=== PATIENT | female | born 1995 | race African-American/Black ===

== ENCOUNTER 2020-10-03 09:02 | Emergency (ER) | payer OTHER ==
[2020-10-03 09:11] VITALS: BP 118/71; PULSE 65; TEMP 98.9; BMI 23.9
== END 2020-10-03 09:40 | disposition home or self-care (01) ==
LOC: JER 09:02
DX: T24.232A Burn of second degree of left lower leg, initial encounter (principal)
CPT/HCPCS: 99283-25

== ENCOUNTER 2022-09-02 10:25 | Emergency (ER) | payer OTHER ==
[2022-09-02 10:32] VITALS: BMI 24.0
[2022-09-02 11:54] LABS: BASO % 0.7 % (0-2.0); EOS % 1.5 % (0-4.5); HEMATOCRIT 34.8 % (32.4-45.2); HEMOGLOBIN 11.6 GM/dL (10.7-15.3); LYMPH % 15.3 % (8-40); MCH 32.5 pg (25.7-33.7); MCHC 33.3 g/dl (32.0-36.0); MEAN CELL VOLUME 97.8 fl (80-96); MEAN PLT VOLUME 7.3 fl (7.5-11.1); MONO % 8.1 % (3.8-10.2); NEUT % 74.4 % (42.8-82.8); PLATELET COUNT 435 10^3/uL (134-434); RBC 3.55 M/mm3 (3.60-5.2); RDW 14.2 % (11.6-15.6); WHITE BLOOD COUNT 10.1 K/mm3 (4.0-10.0)
[2022-09-02 11:56] LABS: EPI CELLS >36 /uL (0-25.1); HYALINE CASTS 3 /uL (0-3.1); PH,URINE 7.5 (5.0-8.0); URINE APPEARANCE CLOUDY; URINE BACTERIA 294 /uL (0-1359); URINE BILIRUBIN NEGATIVE (NEGATIVE); URINE COLOR YELLOW; URINE GLUCOSE (UA) NEGATIVE (NEGATIVE); URINE KETONE TRACE (NEGATIVE); URINE LEUK ESTERASE NEGATIVE (NEGATIVE); URINE NITRITE NEGATIVE (NEGATIVE); URINE PROTEIN 1+ (NEGATIVE); URINE RBC 14 /uL (0-23.9); URINE UROBILINOGEN 0.2 mg/dL (0.2-1.0)
[2022-09-02 12:10] LABS: URINE WBC 57 /uL (0-25.8)
[2022-09-02 12:12] LABS: POTASSIUM 3.8 mmol/L (3.5-5.1)
[2022-09-02 12:14] LABS: CALCIUM 9.1 mg/dL (8.5-10.1)
[2022-09-02 12:15] LABS: BLOOD UREA NITROGEN 7.2 mg/dL (7-18); MAGNESIUM 1.8 mg/dL (1.8-2.4)
[2022-09-02 12:18] LABS: CREATININE 0.5 mg/dL (0.55-1.3)
[2022-09-02 12:19] LABS: BILIRUBIN,TOTAL 0.2 mg/dL (0.2-1)
[2022-09-02 12:20] LABS: TOT PROT 7.3 g/dl (6.4-8.2)
[2022-09-02 12:57] VITALS: BP 114/63; PULSE 97; RESP 18; TEMP 98.5
== END 2022-09-02 14:00 | disposition home or self-care (01) ==
LOC: JER 10:25
DX: O99.513 Diseases of the respiratory system complicating pregnancy, third trimester (principal); R06.02 Shortness of breath; O26.893 Other specified pregnancy related conditions, third trimester; R42 Dizziness and giddiness; Z3A.31 31 weeks gestation of pregnancy
CPT/HCPCS: 36415; 80053; 81003; 83735; 84439; 84443; 85025; 93005; 93010; 99284-25

== ENCOUNTER 2022-10-27 04:30 | Inpatient (IN) | payer OTHER ==
[2022-10-27] MEDS ORDERED: PROMETHAZINE HCL 25 MG/1 ML VIAL IVPB ONE (05:45)
[2022-10-27] MEDS ORDERED: BUTORPHANOL TARTRATE 1 MG/ML VIAL IVPB ONE (05:45)
[2022-10-27] MEDS: ELECTROLYTE-148 SOLN 1,000 ML IV SCH ×2 (06:00→09:00)
[2022-10-27 06:13] VITALS: BMI 26.9
[2022-10-27 06:47] LABS: BASO % 0.6 % (0-2.0); EOS % 0.6 % (0-4.5); HEMATOCRIT 38.7 % (32.4-45.2); HEMOGLOBIN 12.5 GM/dL (10.7-15.3); LYMPH % 19.9 % (8-40); MCH 32.6 pg (25.7-33.7); MCHC 32.3 g/dl (32.0-36.0); MEAN PLT VOLUME 8.4 fl (7.5-11.1); MONO % 9.9 % (3.8-10.2); PLATELET COUNT 436 10^3/uL (134-434); RBC 3.83 M/mm3 (3.60-5.2); RDW 14.8 % (11.6-15.6); WHITE BLOOD COUNT 11.2 K/mm3 (4.0-10.0)
[2022-10-27 07:39] LABS: INR 1.03 (0.83-1.09); PROTHROMBIN TIME (PATIENT) 11.9 SEC (9.7-13.0)
[2022-10-27 07:42] LABS: ACTIVATED PTT 30.1 SECONDS (25.2-36.5)
[2022-10-27] MEDS ORDERED: FENTANYL/BUPIVACAINE/NS/PF - PCEA - 50 ML DISP.SYRIN EP ONE ×3 (08:22→17:59)
[2022-10-27 08:26] LABS: POTASSIUM 4.1 mmol/L (3.5-5.1)
[2022-10-27 08:27] LABS: CALCIUM 9.4 mg/dL (8.5-10.1)
[2022-10-27 08:28] LABS: BLOOD UREA NITROGEN 5.6 mg/dL (7-18)
[2022-10-27 08:31] LABS: CREATININE 0.5 mg/dL (0.55-1.3)
[2022-10-27] MEDS ORDERED: NALOXONE HCL 0.4 MG/ML VIAL IVPUSH PRN (09:30)
[2022-10-27] MEDS ORDERED: FENTANYL/BUPIVACAINE/NS/PF - PCEA - 50 ML DISP.SYRIN EP SCH (09:30)
[2022-10-27] MEDS ORDERED: ELECTROLYTE-148 SOLN 1,000 ML IV SCH (10:45)
[2022-10-27 12:26] LABS: HIV INTERPRETATION NEGATIVE (NEGATIVE)
[2022-10-27] MEDS ORDERED: OXYTOCIN 30 UNITS in 0.9% NS 30 UNIT/500 ML INFUS.BAG IVPB SCH (12:45)
[2022-10-27] MEDS: FENTANYL/BUPIVACAINE/NS/PF - PCEA - 50 ML DISP.SYRIN EP SCH ×2 (13:30→18:00)
[2022-10-27] MEDS ORDERED: OXYTOCIN 30 UNITS in 0.9% NS 30 UNIT/500 ML INFUS.BAG IVPB ONE (13:47)
[2022-10-27] MEDS ORDERED: OXYTOCIN 20 UNITS in 0.9% NS 20 UNIT/1,000 ML INFUS.BAG IV ONE (19:28)
[2022-10-27] MEDS ORDERED: LIDOCAINE HCL 1% PRESERVATIVE FREE - 30ML VIAL ONE (22:30)
[2022-10-27] MEDS ORDERED: oxyCODONE HCL 5 MG TABLET PO PRN (22:56)
[2022-10-27] MEDS ORDERED: BENZOCAINE 28 GM HEMORRHOIDAL OINTMENT TP PRN (22:56)
[2022-10-27] MEDS ORDERED: ACETAMINOPHEN 325 MG TABLET (FP) PO PRN (22:56)
[2022-10-27] MEDS ORDERED: METHYLERGONOVINE MALEATE 0.2 MG/1 ML AMP IM PRN (22:56)
[2022-10-27] MEDS ORDERED: BISACODYL 10 MG SUPP.RECT RC PRN (22:56)
[2022-10-27] MEDS ORDERED: WITCH HAZEL 50% (TUCKS) 40 PAD/JAR PAD TP PRN (22:56)
[2022-10-27] MEDS ORDERED: BENZOCAINE 20% 57 GM BOTTLE TP PRN (22:56)
[2022-10-27] MEDS ORDERED: OXYTOCIN 20 UNITS in 0.9% NS 20 UNIT/1,000 ML INFUS.BAG IV SCH (23:00)
[2022-10-28] MEDS: IBUPROFEN 600 MG TABLET (FP) PO PRN ×2 (01:27→16:05)
[2022-10-28 06:51] LABS: HEMATOCRIT 35.8 % (32.4-45.2); HEMOGLOBIN 11.5 GM/dL (10.7-15.3); MCH 32.4 pg (25.7-33.7); MCHC 32.2 g/dl (32.0-36.0); MEAN CELL VOLUME 100.5 fl (80-96); MEAN PLT VOLUME 8.2 fl (7.5-11.1); PLATELET COUNT 418 10^3/uL (134-434); RBC 3.56 M/mm3 (3.60-5.2); RDW 14.4 % (11.6-15.6); WHITE BLOOD COUNT 22.9 K/mm3 (4.0-10.0)
[2022-10-28] MEDS: FERROUS SO4 325 MG TABLET (FP) PO SCH (09:41)
[2022-10-28] MEDS: PRENATAL VITAMINS W/ FOLIC ACID TABLET (FP) PO SCH (09:41)
[2022-10-28 09:45] LABS: ANISOCYTOSIS 1+; MACROCYTOSIS 1+
[2022-10-28] MEDS ORDERED: SENNOSIDES/DOCUSATE COMBO (SENNA PLUS) TABLET (UD) PO PRN (22:00)
[2022-10-29 08:31] VITALS: BP 107/60; PULSE 79; RESP 16; TEMP 98
[2022-10-29] MEDS: FERROUS SO4 325 MG TABLET (FP) PO SCH (08:35)
[2022-10-29] MEDS: FENTANYL/BUPIVACAINE/NS/PF - PCEA - 50 ML DISP.SYRIN EP SCH (10:14)
[2022-10-29] MEDS: PRENATAL VITAMINS W/ FOLIC ACID TABLET (FP) PO SCH (10:15)
[2022-10-29] MEDS: ELECTROLYTE-148 SOLN 1,000 ML IV SCH (10:15)
== END 2022-10-29 12:53 | disposition home or self-care (01) | DRG 807 ==
LOC: JDEL 04:30 → JLDR 05:30 → J3W 10-28 00:35
PROVIDERS: ADMIT Obstetrics & Gynecology; ATTEND Obstetrics & Gynecology
PROC: 0HQ9XZZ Repair Perineum Skin, External Approach (ICD-10-PCS; principal; 2022-10-27)
PROC: 10E0XZZ Delivery of Products of Conception, External Approach (ICD-10-PCS; 2022-10-27)
DX: O70.0 First degree perineal laceration during delivery (principal); Z37.0 Single live birth; Z3A.39 39 weeks gestation of pregnancy
CPT/HCPCS: 36415; 59025; 80048; 85025; 85610; 85730; 86780; 86850; 86900; 86901; 87389